=== PATIENT | male | born 1945 | race Caucasian/White ===

== ENCOUNTER → 2021-05-22 | Outpatient (CLI) | payer MEDICARE ==
--- NOTE | 2021-05-22 18:04 | KCIC ---
Right shoulder 3 views: Reason for examination: Right shoulder pain No acute fracture or dislocation is seen. The bone density is normal. There is a small 10 x 4.5 mm ca lcific density lateral to the acromium which appears to be chronic. Joint spaces appear to be maintai rivka. IMPRESSION: Small 10 x 4.5 mm calcific density lateral to the acromium above the joint space/tendon. This appears be chronic. No acute abnormality evident at the right shoulder. Electronically signed by: Flory Ambrosio MD (05/22/2021 6:02 PM) JOANNA
== END ==
LOC: KCIC 13:16
PROVIDERS: ATTEND Family Medicine
DX: M75.31 Calcific tendinitis of right shoulder (principal); M25.511 Pain in right shoulder
CPT/HCPCS: 73030